=== PATIENT | female | born 2000 | race Caucasian/White ===

== ENCOUNTER 2023-06-07 10:02 | Emergency (ER) | payer BC ==
[~2023-06-07] VITALS: Ht 170.2 cm; Wt 59.9 kg
[2023-06-07] MEDS ORDERED: ONDANSETRON HCL/PF 4 MG/2 ML VIAL ONE (10:26)
[2023-06-07 10:44] LABS: APPEARANCE,URINE CLEAR (CLEAR); BILIRUBIN,URINE 2+ (NEGATIVE); BLOOD, URINE 3+ Ery/uL (NEGATIVE); COLOR,URINE DARK YELLOW (YELLOW); KETONES,URINE 3+ mg/dL (NEGATIVE); LEUKOCYTE ESTERASE ,URINE TRACE (NEGATIVE); NITRITE, URINE NEGATIVE (NEGATIVE); PROTEIN,URINE 2+ mg/dl (NEGATIVE); UGLUCOSE NEGATIVE (NEGATIVE)
[2023-06-07 10:45] LABS: ADD URINE CULTURE NO; BACTERIA,URINE Rare /HPF (None Seen); PREGNANCY TEST URINE QUAL NEGATIVE (NEGATIVE); RBC,URINE 21-50 /HPF (0-2); SQUAMOUS EPITHELIAL CELL,UR Rare /HPF (None Seen)
[2023-06-07] MEDS: ONDANSETRON HCL/PF 4 MG/2 ML VIAL IVP ONE (10:55)
[2023-06-07] MEDS: IV NS 0.9% 1,000 ML BAG IV ONE (10:58)
[2023-06-07 11:05] LABS: BASOPHILS % (AUTO) 0.5 % (0.0-2.0); EOSINOPHILS % (AUTO) 0.1 % (0.0-6.0); HEMATOCRIT 44 % (33-45); LYMPHOCYTES # (AUTO) 0.9 K/uL (0.8-4.8); LYMPHOCYTES % (AUTO) 10.1 % (20.0-44.0); MEAN CORPUSCULAR HEMOGLOBIN 30 PG (26.0-33.0); MEAN CORPUSCULAR HGB CONC 34 g/dl (31.0-36.0); MEAN CORPUSCULAR VOLUME 87 fL (82-100); MONOCYTES # (AUTO) 0.6 K/uL (0.1-1.30); MONOCYTES % (AUTO) 6.9 % (2.0-12.0); NEUTROPHILS # (AUTO) 7.2 K/uL (1.8-8.9); NEUTROPHILS % (AUTO) 82.4 % (43.0-81.0); PLATELET COUNT (AUTO) 210 K/uL (150-450); RED BLOOD CELL COUNT(AUTO) 5.05 MIL/uL (4.0-5.2); RED CELL DISTRIBUTION WIDTH 12.8 % (11.5-15.0); WHITE BLOOD COUNT (AUTO) 8.7 K/uL (4.3-11.0)
[2023-06-07 11:17] LABS: CALCIUM, SERUM 10.3 mg/dL (8.5-10.1); CREATININE 0.7 mg/dL (0.6-1.3)
[2023-06-07 11:24] LABS: ALBUMIN 5.3 g/dL (3.4-5.0); BILIRUBIN,DIRECT 0.4 mg/dL (0.0-0.2); BILIRUBIN,TOTAL 2.1 mg/dL (0.2-1.0)
[2023-06-07] MEDS ORDERED: ONDA4TAB5 PO (11:30)
[2023-06-07] MEDS ORDERED: IBUP-1957 PO (11:30)
[2023-06-07 11:40] VITALS: BP 124/78; TEMP 98.3; O2SAT 97
== END 2023-06-07 11:41 | disposition home or self-care (01) ==
LOC: ER 10:02
DX: N94.6 Dysmenorrhea, unspecified (principal); R11.2 Nausea with vomiting, unspecified
CPT/HCPCS: 99283; 96374; 96361; 85025; 80048; 83690; 80076; 84703; 81001; 36415; J2405; J7030

== ENCOUNTER 2023-07-17 06:34 | Emergency (ER) | payer BC ==
[~2023-07-17] VITALS: Ht 165.1 cm; Wt 54.4 kg
[~2023-07-17 06:34] MED LIST: IBUP-1957 PO; ONDA4TAB5 PO
[2023-07-17] MEDS ORDERED: ONDANSETRON HCL/PF 4 MG/2 ML VIAL ONE (07:46)
[2023-07-17] MEDS: IV NS 0.9% 1,000 ML BAG IV ONE (07:56)
[2023-07-17] MEDS: ONDANSETRON HCL/PF 4 MG/2 ML VIAL IVP ONE (07:56)
[2023-07-17 08:20] LABS: PREGNANCY TEST URINE QUAL NEGATIVE (NEGATIVE)
[2023-07-17 08:20] LABS: BASOPHILS % (AUTO) 0.3 % (0.0-2.0); HEMATOCRIT 40 % (33-45); LYMPHOCYTES # (AUTO) 0.7 K/uL (0.8-4.8); LYMPHOCYTES % (AUTO) 10.8 % (20.0-44.0); MEAN CORPUSCULAR HEMOGLOBIN 31 PG (26.0-33.0); MEAN CORPUSCULAR HGB CONC 36 g/dl (31.0-36.0); MEAN CORPUSCULAR VOLUME 86 fL (82-100); MONOCYTES # (AUTO) 0.6 K/uL (0.1-1.30); MONOCYTES % (AUTO) 8.9 % (2.0-12.0); NEUTROPHILS # (AUTO) 5.4 K/uL (1.8-8.9); PLATELET COUNT (AUTO) 193 K/uL (150-450); RED CELL DISTRIBUTION WIDTH 12.9 % (11.5-15.0); WHITE BLOOD COUNT (AUTO) 6.7 K/uL (4.3-11.0)
[2023-07-17 08:24] LABS: CALCIUM, SERUM 9.6 mg/dL (8.5-10.1); CREATININE 0.5 mg/dL (0.6-1.3); POTASSIUM 3.2 mmol/L (3.5-5.1)
[2023-07-17] MEDS: POTASSIUM CHLORIDE 20 MEQ TAB.PRT.SR PO ONE (09:05)
[2023-07-17] MEDS ORDERED: POTASSIUM CHLORIDE 20 MEQ TAB.PRT.SR PO ONE (09:05)
[2023-07-17 09:33] VITALS: BP 123/70; TEMP 98.1; O2SAT 98
== END 2023-07-17 09:34 | disposition home or self-care (01) ==
LOC: ER 06:42
DX: R11.2 Nausea with vomiting, unspecified (principal); F17.200 Nicotine dependence, unspecified, uncomplicated; R10.2 Pelvic and perineal pain; Z79.899 Other long term (current) drug therapy
CPT/HCPCS: 99283; 96374; 96361; 85025; 80048; 84703; 36415; J2405; J7030

== ENCOUNTER 2023-08-11 12:17 | Emergency (ER) | payer BC ==
[~2023-08-11] VITALS: Ht 170.2 cm; Wt 59.0 kg
[2023-08-11] MEDS ORDERED: IBUP-1955 PO (14:55)
[2023-08-11 15:25] VITALS: BP 120/66; TEMP 98.6; O2SAT 100
== END 2023-08-11 15:25 | disposition home or self-care (01) ==
LOC: ER 12:55
DX: J02.9 Acute pharyngitis, unspecified (principal)

== ENCOUNTER 2024-02-12 12:29 | Emergency (ER) | payer BC ==
[~2024-02-12] VITALS: Ht 170.2 cm; Wt 61.2 kg
[~2024-02-12 12:29] MED LIST changes: +IBUP-1955 PO
[2024-02-12 12:59] LABS: BASOPHILS % (AUTO) 0.1 % (0.0-2.0); HEMATOCRIT 44 % (33-45); LYMPHOCYTES # (AUTO) 0.5 K/uL (0.8-4.8); LYMPHOCYTES % (AUTO) 4.9 % (20.0-44.0); MEAN CORPUSCULAR HEMOGLOBIN 31 PG (26.0-33.0); MEAN CORPUSCULAR HGB CONC 34 g/dl (31.0-36.0); MEAN CORPUSCULAR VOLUME 90 fL (82-100); MONOCYTES # (AUTO) 0.7 K/uL (0.1-1.30); MONOCYTES % (AUTO) 6.4 % (2.0-12.0); NEUTROPHILS # (AUTO) 9.3 K/uL (1.8-8.9); NEUTROPHILS % (AUTO) 88.6 % (43.0-81.0); PLATELET COUNT (AUTO) 209 K/uL (150-450); RED BLOOD CELL COUNT(AUTO) 4.91 MIL/uL (4.0-5.2); RED CELL DISTRIBUTION WIDTH 13.1 % (11.5-15.0); WHITE BLOOD COUNT (AUTO) 10.5 K/uL (4.3-11.0)
[2024-02-12 13:07] LABS: CALCIUM, SERUM 10.6 mg/dL (8.5-10.1); CREATININE 0.8 mg/dL (0.6-1.3); POTASSIUM 3.4 mmol/L (3.5-5.1)
[2024-02-12 13:13] LABS: ALBUMIN 5.4 g/dL (3.4-5.0); BILIRUBIN,DIRECT 0.3 mg/dL (0.0-0.2); BILIRUBIN,TOTAL 1.4 mg/dL (0.2-1.0); TOTAL PROTEIN, SERUM 9.4 g/dL (6.4-8.2)
[2024-02-12] MEDS ORDERED: ONDANSETRON HCL/PF 4 MG/2 ML VIAL ONE (13:13)
[2024-02-12] MEDS: ONDANSETRON HCL/PF 4 MG/2 ML VIAL IVP ONE (13:17)
[2024-02-12] MEDS: IV NS 0.9% 1,000 ML BAG IV ONE (13:17)
[2024-02-12] MEDS ORDERED: ONDA4TAB5 PO (13:29)
[2024-02-12 13:39] VITALS: BP 115/88; TEMP 97.9; O2SAT 99
== END 2024-02-12 13:39 | disposition home or self-care (01) ==
LOC: ER 12:33
DX: R11.2 Nausea with vomiting, unspecified (principal); F17.200 Nicotine dependence, unspecified, uncomplicated; Z79.1 Long term (current) use of non-steroidal anti-inflammatories (NSAID)
CPT/HCPCS: 99283; 96374; 96361; 85025; 80048; 83690; 80076; J2405; J7030; 36415

== ENCOUNTER 2024-04-27 01:05 | Emergency (ER) | payer BC ==
[~2024-04-27] VITALS: Ht 170.2 cm; Wt 59.0 kg
[2024-04-27] MEDS ORDERED: ONDANSETRON HCL/PF 4 MG/2 ML VIAL ONE (02:00)
[2024-04-27] MEDS: ONDANSETRON HCL/PF 4 MG/2 ML VIAL IVP ONE (02:04)
[2024-04-27] MEDS: IV NS 0.9% 1,000 ML BAG IV ONE (02:04)
[2024-04-27 02:08] LABS: BASOPHILS % (AUTO) 0.3 % (0.0-2.0); HEMATOCRIT 42 % (33-45); HEMOGLOBIN 14.6 g/dL (11.5-14.8); LYMPHOCYTES # (AUTO) 0.3 K/uL (0.8-4.8); LYMPHOCYTES % (AUTO) 3.8 % (20.0-44.0); MEAN CORPUSCULAR HEMOGLOBIN 30 PG (26.0-33.0); MEAN CORPUSCULAR HGB CONC 35 g/dl (31.0-36.0); MEAN CORPUSCULAR VOLUME 88 fL (82-100); MONOCYTES # (AUTO) 0.1 K/uL (0.1-1.30); MONOCYTES % (AUTO) 1.6 % (2.0-12.0); NEUTROPHILS # (AUTO) 7.6 K/uL (1.8-8.9); NEUTROPHILS % (AUTO) 94.3 % (43.0-81.0); PLATELET COUNT (AUTO) 202 K/uL (150-450); RED BLOOD CELL COUNT(AUTO) 4.82 MIL/uL (4.0-5.2); RED CELL DISTRIBUTION WIDTH 13.3 % (11.5-15.0)
[2024-04-27] MEDS ORDERED: ONDA4TAB5 PO (02:10)
[2024-04-27 02:25] LABS: ALBUMIN 5.4 g/dL (3.4-5.0); BILIRUBIN,DIRECT 0.3 mg/dL (0.0-0.2); BILIRUBIN,TOTAL 1.6 mg/dL (0.2-1.0); CALCIUM, SERUM 9.8 mg/dL (8.5-10.1); TOTAL PROTEIN, SERUM 9.2 g/dL (6.4-8.2)
[2024-04-27 02:26] LABS: POTASSIUM 2.8 mmol/L (3.5-5.1)
[2024-04-27] MEDS ORDERED: POTASSIUM CHLORIDE 20 MEQ TAB.PRT.SR PO ONE (02:32)
[2024-04-27] MEDS: POTASSIUM CHLORIDE 20 MEQ TAB.PRT.SR PO ONE ×2 (02:32)
[2024-04-27] MEDS ORDERED: POTA10TA PO (02:41)
[2024-04-27 03:01] VITALS: BP 122/77; TEMP 98.6; O2SAT 100
== END 2024-04-27 03:12 | disposition home or self-care (01) ==
LOC: ER 01:06
DX: R11.2 Nausea with vomiting, unspecified (principal); E87.6 Hypokalemia; F17.210 Nicotine dependence, cigarettes, uncomplicated; Z79.1 Long term (current) use of non-steroidal anti-inflammatories (NSAID); Z79.899 Other long term (current) drug therapy
CPT/HCPCS: 99283; 96374; 96361; 99406; 85025; 80048; 83690; 80076; 36415; J2405; J7030

== ENCOUNTER 2024-04-28 19:04 | Emergency (ER) | payer BC ==
[~2024-04-28] VITALS: Ht 170.2 cm; Wt 56.7 kg
[~2024-04-28 19:04] MED LIST changes: +POTA10TA PO
[2024-04-28] MEDS ORDERED: ONDANSETRON HCL/PF 4 MG/2 ML VIAL ONE (19:47)
[2024-04-28] MEDS: IV NS 0.9% 1,000 ML BAG IV ONE (19:54)
[2024-04-28] MEDS: ONDANSETRON HCL/PF 4 MG/2 ML VIAL IVP ONE (19:56)
[2024-04-28 20:02] LABS: BASOPHILS % (AUTO) 0.3 % (0.0-2.0); HEMATOCRIT 41 % (33-45); HEMOGLOBIN 14.1 g/dL (11.5-14.8); LYMPHOCYTES # (AUTO) 0.7 K/uL (0.8-4.8); LYMPHOCYTES % (AUTO) 9.3 % (20.0-44.0); MEAN CORPUSCULAR HEMOGLOBIN 30 PG (26.0-33.0); MEAN CORPUSCULAR HGB CONC 34 g/dl (31.0-36.0); MEAN CORPUSCULAR VOLUME 87 fL (82-100); MONOCYTES # (AUTO) 0.6 K/uL (0.1-1.30); MONOCYTES % (AUTO) 8.6 % (2.0-12.0); NEUTROPHILS % (AUTO) 81.8 % (43.0-81.0); PLATELET COUNT (AUTO) 179 K/uL (150-450); RED BLOOD CELL COUNT(AUTO) 4.77 MIL/uL (4.0-5.2); RED CELL DISTRIBUTION WIDTH 13.4 % (11.5-15.0); WHITE BLOOD COUNT (AUTO) 7.3 K/uL (4.3-11.0)
[2024-04-28 20:09] LABS: CALCIUM, SERUM 9.4 mg/dL (8.5-10.1); CREATININE 0.6 mg/dL (0.6-1.3); POTASSIUM 2.9 mmol/L (3.5-5.1)
[2024-04-28] MEDS ORDERED: POTASSIUM CHLORIDE 20 MEQ TAB.PRT.SR PO ONE (20:41)
[2024-04-28] MEDS: POTASSIUM CHLORIDE 20 MEQ TAB.PRT.SR PO ONE (20:47)
[2024-04-28] MEDS: IV NS 0.9% 500 ML BAG IV ONE (20:47)
[2024-04-28 21:24] VITALS: BP 115/85; TEMP 97.7; O2SAT 100
[2024-04-29] MEDS ORDERED: HALO5TAB PO (19:05)
== END 2024-04-28 21:26 | disposition home or self-care (01) ==
LOC: ER 19:09
DX: R11.2 Nausea with vomiting, unspecified (principal); E87.6 Hypokalemia; F17.200 Nicotine dependence, unspecified, uncomplicated; R10.2 Pelvic and perineal pain; Z79.1 Long term (current) use of non-steroidal anti-inflammatories (NSAID); Z79.899 Other long term (current) drug therapy
CPT/HCPCS: 99283; 96374; 96361; 85025; 80048; 36415; 84702; J2405; J7040

== ENCOUNTER 2024-04-29 16:37 | Emergency (ER) | payer BC ==
[~2024-04-29] VITALS: Ht 170.2 cm; Wt 56.7 kg
[2024-04-29 17:24] LABS: BASOPHILS % (AUTO) 0.7 % (0.0-2.0); EOSINOPHILS % (AUTO) 0.1 % (0.0-6.0); HEMATOCRIT 40 % (33-45); HEMOGLOBIN 13.6 g/dL (11.5-14.8); LYMPHOCYTES % (AUTO) 17.3 % (20.0-44.0); MEAN CORPUSCULAR HEMOGLOBIN 30 PG (26.0-33.0); MEAN CORPUSCULAR HGB CONC 34 g/dl (31.0-36.0); MEAN CORPUSCULAR VOLUME 87 fL (82-100); MONOCYTES # (AUTO) 0.6 K/uL (0.1-1.30); MONOCYTES % (AUTO) 9.9 % (2.0-12.0); NEUTROPHILS # (AUTO) 4.1 K/uL (1.8-8.9); PLATELET COUNT (AUTO) 165 K/uL (150-450); RED BLOOD CELL COUNT(AUTO) 4.58 MIL/uL (4.0-5.2); RED CELL DISTRIBUTION WIDTH 13.2 % (11.5-15.0); WHITE BLOOD COUNT (AUTO) 5.7 K/uL (4.3-11.0)
[2024-04-29 17:32] LABS: CREATININE 0.6 mg/dL (0.6-1.3); POTASSIUM 3.2 mmol/L (3.5-5.1)
[2024-04-29 17:40] LABS: ALBUMIN 4.6 g/dL (3.4-5.0); BILIRUBIN,TOTAL 2.2 mg/dL (0.2-1.0); TOTAL PROTEIN, SERUM 7.7 g/dL (6.4-8.2)
[2024-04-29] MEDS: HALOPERIDOL LACTATE INJ 5 MG/ML VIAL IV ONE (18:00)
[2024-04-29] MEDS ORDERED: HALOPERIDOL LACTATE INJ 5 MG/ML VIAL ONE (18:01)
[2024-04-29] MEDS: IV NS 0.9% 1,000 ML BAG IV ONE (18:30)
[2024-04-29] MEDS ORDERED: HALO5TAB PO (19:05)
[2024-04-29 19:25] VITALS: BP 110/66; TEMP 98; O2SAT 95
== END 2024-04-29 19:25 | disposition home or self-care (01) ==
LOC: ER 16:39
DX: R11.2 Nausea with vomiting, unspecified (principal); R00.1 Bradycardia, unspecified; R42 Dizziness and giddiness; R53.1 Weakness; E87.6 Hypokalemia; F12.90 Cannabis use, unspecified, uncomplicated; F17.200 Nicotine dependence, unspecified, uncomplicated; Z79.1 Long term (current) use of non-steroidal anti-inflammatories (NSAID); Z79.899 Other long term (current) drug therapy
CPT/HCPCS: 99284; 96374; 96361; 93005; 85025; 36415; 80053; J1630; J7030; A4223

== ENCOUNTER 2024-07-29 16:10 | Emergency (ER) | payer BC ==
[~2024-07-29] VITALS: Ht 170.2 cm; Wt 61.2 kg
[~2024-07-29 16:10] MED LIST changes: +HALO5TAB PO
[2024-07-29 16:21] VITALS: TEMP 98
[2024-07-29] MEDS ORDERED: ONDANSETRON HCL/PF 4 MG/2 ML VIAL ONE ×2 (16:32→18:36)
[2024-07-29] MEDS: ONDANSETRON HCL/PF 4 MG/2 ML VIAL IVP ONE (16:41)
[2024-07-29] MEDS ORDERED: KETOROLAC TROMETHAMINE 15 MG/ML VIAL ONE (16:44)
[2024-07-29] MEDS: IV NS 0.9% 1,000 ML BAG IV ONE (16:45)
[2024-07-29] MEDS: KETOROLAC TROMETHAMINE 15 MG/ML VIAL IV ONE (16:54)
[2024-07-29] MEDS: ONDANSETRON HCL/PF 4 MG/2 ML VIAL IV ONE (18:40)
[2024-07-29] MEDS ORDERED: ONDA4TAB5 PO (19:22)
[2024-07-29] MEDS ORDERED: IBUP-1490 PO (19:22)
[2024-07-29 19:32] VITALS: BP 112/65; O2SAT 98
== END 2024-07-29 19:32 | disposition home or self-care (01) ==
LOC: ER 16:20
DX: N94.6 Dysmenorrhea, unspecified (principal); F17.200 Nicotine dependence, unspecified, uncomplicated; Z79.1 Long term (current) use of non-steroidal anti-inflammatories (NSAID); Z79.899 Other long term (current) drug therapy
CPT/HCPCS: 99285; 96374; 76856; 96361; 96375; 96376; J1885; J2405 ×2; J7030

== ENCOUNTER 2025-01-28 16:56 | Emergency (ER) | payer BC ==
[~2025-01-28] VITALS: Ht 170.2 cm; Wt 61.2 kg
[~2025-01-28 16:56] MED LIST changes: +IBUP-1490 PO
[2025-01-28] MEDS ORDERED: IBUP-1955 PO (17:44)
[2025-01-28] MEDS ORDERED: ACET325C7 PO (17:44)
[2025-01-28] MEDS ORDERED: PSEU120T83 PO (17:44)
[2025-01-28] MEDS ORDERED: GUAI5SYR PO (17:44)
[2025-01-28 17:53] VITALS: BP 99/56; TEMP 98.3; O2SAT 97
== END 2025-01-28 17:53 | disposition home or self-care (01) ==
LOC: ER 17:09
DX: J06.9 Acute upper respiratory infection, unspecified (principal); R05.9 Cough, unspecified; R09.81 Nasal congestion; F17.200 Nicotine dependence, unspecified, uncomplicated; Z79.1 Long term (current) use of non-steroidal anti-inflammatories (NSAID); Z79.899 Other long term (current) drug therapy